=== PATIENT | male | born 1990 | race African-American/Black ===

== ENCOUNTER 2020-06-03 14:37 | Emergency (ER) | payer MEDICAID ==
[~2020-06-03] VITALS: Ht 172.7 cm; Wt 72.7 kg
[2020-06-03] MEDS ORDERED: HYDROCODONE/ACETAMINOPHEN 5-325 MG TABLET PO ONE (15:15)
[2020-06-03 17:25] VITALS: BP 129/73
== END 2020-06-03 19:34 | disposition home or self-care (01) ==
LOC: EMS 14:41
DX: S82.842A Displaced bimalleolar fracture of left lower leg, initial encounter for closed fracture (principal); X50.9XXA Other and unspecified overexertion or strenuous movements or postures, initial encounter; Y93.89 Activity, other specified; Y92.89 Other specified places as the place of occurrence of the external cause; Y99.8 Other external cause status
CPT/HCPCS: 29515; 73590-TC; 73610-TC; Z7502; Z7610